=== PATIENT | female | born 1985 | race Caucasian/White ===

== ENCOUNTER 2023-04-28 21:43 | Emergency (ER) | payer BC, OTHER ==
[2023-04-28] MEDS ORDERED: Iopamidol 755 Mg/ML 100 ML Bottle IVPUSH ONE (23:00)
[2023-04-28] MEDS ORDERED: Sodium Chloride 0.9% 100 ML IV SCH (23:00)
[2023-04-29 00:02] LABS: A/G RATIO 0.9 (1-2); ALBUMIN 3.3 g/dl (3.4-5.0); ANION GAP 12.8 (5-15); BILIRUBIN TOTAL 0.3 mg/dL (0.2-1.0); C-REACTIVE PROTEIN 1.7 mg/dL (<1.0); CREATININE 0.8 mg/dL (0.55-1.02); EST CRCL DRUG DOSING (CG) 85.8 mL/min; MAGNESIUM 1.8 mg/dL (1.8-2.4); POTASSIUM,K 3.8 mEq/L (3.5-5.1); PROTEIN TOTAL,TP 7.1 g/dl (6.4-8.2)
[2023-04-29 00:17] LABS: CALCIUM 8.4 mg/dL (8.5-10.1)
[2023-04-29 00:48] LABS: HEMOGLOBIN 12.8 gm/dl (11.2-15.7); MEAN CORPUSCULAR HEMOGLOBIN 29.2 pg (25.6-32.2); RED BLOOD CELL COUNT 4.38 M/mm3 (3.98-5.22); WHITE BLOOD CELL COUNT,WBC 13.04 K/mm3 (3.98-10.04)
[2023-04-29 00:49] LABS: BASOPHILS PERCENT AUTO 0.2 % (0.1-1.2); EOSINOPHILS PERCENT AUTO 0.8 (0.7-5.8); IMMATURE GRAN PERCENT AUTO 0.5 % (<=1.0); LYMPHOCYTES ABSOLUTE AUTO 3.53 K/mm3 (1.18-3.74); LYMPHOCYTES PERCENT AUTO 27.1 % (19.3-51.7); MEAN CORPUSCULAR HGB CONC 32.8 g/dl (32.2-35.5); MEAN PLATELET VOLUME 8.6 fl (9.4-12.3); MONOCYTES PERCENT AUTO 8.1 % (4.7-12.5); NEUTROPHILS ABSOLUTE AUTO 8.24 K/mm3 (1.56-6.13); NEUTROPHILS PERCENT AUTO 63.3 % (34.0-71.1); PLATELET COUNT,PLT 377 K/mm3 (182-369)
[2023-04-29 00:50] LABS: BASOPHILS ABSOLUTE AUTO 0.03 K/mm3 (0.01-0.08); EOSINOPHILS ABSOLUTE AUTO 0.11 K/mm3 (0.04-0.36); IMMATURE GRAN ABSOLUTE AUTO 0.07 K/mm3 (0.00-0.10); MONOCYTES ABSOLUTE AUTO 1.06 K/mm3 (0.24-0.36)
[2023-04-29] MEDS ORDERED: Magnesium Oxide 400 MG Tab PO ONE (01:00)
[2023-04-29 01:35] VITALS: BP 150/89; PULSE 97
== END 2023-04-29 01:37 | disposition home or self-care (01) ==
LOC: JD.ED 21:43
DX: K21.00 Gastro-esophageal reflux disease with esophagitis, without bleeding (principal); R00.0 Tachycardia, unspecified; R05.9 Cough, unspecified; Z87.891 Personal history of nicotine dependence; Z88.1 Allergy status to other antibiotic agents; Z88.8 Allergy status to other drugs, medicaments and biological substances; Z86.16 Personal history of COVID-19
CPT/HCPCS: 36415; 71275; 80053; 83735; 83880; 84484; 85025; 86140; 93005; 93242; 99285; A9270; J3490; Q9967

== ENCOUNTER 2023-09-09 20:53 | Emergency (ER) | payer OTHER ==
[2023-09-09 23:49] VITALS: BP 140/77; PULSE 111
== END 2023-09-09 22:30 | disposition home or self-care (01) ==
LOC: JD.ED 20:53
DX: K08.89 Other specified disorders of teeth and supporting structures (principal); Z86.16 Personal history of COVID-19; Z79.899 Other long term (current) drug therapy; Z88.1 Allergy status to other antibiotic agents; Z88.8 Allergy status to other drugs, medicaments and biological substances
CPT/HCPCS: 99282